=== PATIENT | male | born 1995 | race Two or more races ===

== ENCOUNTER 2023-12-24 22:52 | Emergency (ER) | payer OTHER ==
[2023-12-24 23:07] VITALS: BP 135/88; O2SAT 98
[2023-12-24 23:42] LABS: RAPID STREP SCREEN POSITIVE (Negative)
[2023-12-25 00:21] LABS: CORONAVIRUS 229E-RESP PCR NOT DETECTED; CORONAVIRUS HKU1-RESP PCR NOT DETECTED
[2023-12-25 00:22] LABS: B. PARAPERTUSSIS- RESP PCR PAN NOT DETECTED; B. PERTUSSIS- RESP PCR PANEL NOT DETECTED; C. PNEUMONIAE- RESP PCR PANEL NOT DETECTED; CORONAVIRUS NL63-RESP PCR NOT DETECTED; CORONAVIRUS OC43-RESP PCR NOT DETECTED; HUMAN METAPNEUMOVIRUS NOT DETECTED; INFLUENZA A- RESP PCR PANEL NOT DETECTED; INFLUENZA B - RESP PCR PANEL NOT DETECTED; M. PNEUMONIAE- RESP PCR PANEL NOT DETECTED; PARAINFLUENZA VIRUS 1 NOT DETECTED; PARAINFLUENZA VIRUS 2 NOT DETECTED; PARAINFLUENZA VIRUS 3 NOT DETECTED; PARAINFLUENZA VIRUS 4 NOT DETECTED; RHINOVIRUS/ENTEROVIRUS NOT DETECTED; RSV- RESP PCR PANEL NOT DETECTED; SARS-CoV-2 -RESP PCR PANEL NOT DETECTED
--- NOTE | 2023-12-25 00:32 | ED Physician Documentation ---
PD HPI HEENT - Stated complaint Stated Complaint: FEVER/L EAR PX/SORE THROAT - Chief complaint Chief Complaint: Heent - History obtained from History obtained from: Patient - Additional information Additional information: HPI from patient. Patient c/o sore throat, left ear pain. Symptoms started gradually 2 days ago, constant and progressive. Reports odynophagia. Denies fever, cough Review of Systems Constitutional: reports: Myalgias. denies: Fever, Chills, Sweats Ears: reports: Ear pain Throat: reports: Sore throat Respiratory: denies: Dyspnea, Cough GI: denies: Abdominal Pain PD PAST MEDICAL HISTORY - Past Medical History Past Medical History: No - Past Surgical History Past Surgical History: No - Present Medications Home Medications: Ambulatory Orders Medication Instructions Recorded Confirmed Amoxicillin 500 mg PO BID #19 cap 12/25/23 - Allergies Allergies/Adverse Reactions: Allergies Allergy/AdvReac Type Severity Reaction Status Date / Time No Known Drug Allergies Allergy Verified 12/24/23 23:03 - Social History Does the pt smoke?: No Smoking Status: Never smoker - Immunizations Immunizations are current?: Yes PD ED PE NORMAL - Vitals Vital signs reviewed: Yes - General General: Alert and oriented X 3, No acute distress, Well developed/nourished - HEENT HEENT: Moist mucous membranes PD ED PE EXPANDED - HEENT HEENT: Pharyngeal erythema, Tonsillar exudate, Other (unable to visualize left TM due to cerumen) Results - Vitals Vitals: Oxygen O2 Source Room air - Labs Labs: Laboratory Tests 12/24/23 12/24/23 23:12 23:12 Nasal Adenovirus (PCR) NOT DETECTED Nasal B. parapertussis DNA (PCR) NOT DETECTED Nasal Coronavir 229E PCR NOT DETECTED Nasal Coronavir HKU1 PCR NOT DETECTED Nasal Coronavir NL63 PCR NOT DETECTED Nasal Coronavir OC43 PCR NOT DETECTED Nasal Enterovir/Rhinovir PCR NOT DETECTED Nasal Influenza B PCR NOT DETECTED Nasal Influenza A PCR NOT DETECTED Nasal Parainfluen 1 PCR NOT DETECTED Nasal Parainfluen 2 PCR NOT DETECTED Nasal Parainfluen 3 PCR NOT DETECTED Nasal Parainfluen 4 PCR NOT DETECTED Nasal RSV (PCR) NOT DETECTED Nasal B.pertussis DNA PCR NOT DETECTED Nasal C.pneumoniae (PCR) NOT DETECTED Jarvis Human Metapneumo PCR NOT DETECTED Nasal M.pneumoniae (PCR) NOT DETECTED Nasal SARS-CoV-2 (PCR) NOT DETECTED Group A Strep Rapid POSITIVE H PD Medical Decision Making - ED course Complexity details: considered differential, d/w patient ED course: rapid strep (+). Given amoxicillin in ED with rx for same. Diagnosis d/w patient along with prognosis. 10-day course of amoxicillin e-prescribed to patient's pharmacy of choice Departure - Departure Disposition: 01 Home, Self Care Clinical Impression: Strep throat Condition: Good Instructions: ED Strep Pharyngitis Conf Prescriptions: Amoxicillin 500 mg PO BID #19 cap Comments: You tested positive for strep throat. For this, you are given the first dose of an antibiotic (amoxicillin) in the emergency department, and I have electronically submitted a prescription for 10-day course of amoxicillin to the [facility] pharmacy in [place]. You are also given a 1-time dose of oral steroid (dexamethasone); this is given for his anti-inflammatory properties. Over the next several hours, the steroid should help reduce the swelling and discomfort in your throat. However, you should also continue to take an [id number] NSAID such as ibuprofen (Advil or Motrin) per the label instructions, as needed for pain. I strongly recommend staying home from work for 2-3 days (at least until feeling improved and at least 2 days of the 10-day antibiotic course); you have declined a work note. Discharge Date/Time: 12/25/23 01:11
[2023-12-25] MEDS: AMOXICILLIN 250 MG CAPSULE PO STA (01:04)
[2023-12-25] MEDS: DEXAMETHASONE 10 MG/ML VIAL PO STA (01:04)
[2023-12-25] MEDS: CHERRY SYRUP 10 ML UDC PO ONE (01:04)
== END 2023-12-25 01:11 | disposition home or self-care (01) ==
LOC: ED 22:52
DX: J02.0 Streptococcal pharyngitis (principal)
CPT/HCPCS: 87430; 87633; 99283; A9270